=== PATIENT | female | born 1970 | race Caucasian/White ===

== ENCOUNTER 2016-08-01 21:15 | Inpatient (IN) | payer OTHER ==
[~2016-08-01] VITALS: Ht 165.1 cm; Wt 92.6 kg
--- NOTE | 2016-08-01 23:59 | DIAGNOSTIC IMAGING REPORT ---
PROCEDURE: XR CHEST 2 VIEW INDICATION: SHORTNESS OF BREATH TECHNIQUE: Two views. COMPARISON: None. FINDINGS: The cardiomediastinal contour and central vasculature are within normal limits. Mild peribronchial thickening bilaterally. Hazy opacity involving the lingula. Patchy perihilar alveolar opacities involving the upper lobes and right middle lobe. No significant pleural effusion or pneumothorax. Intact osseous structures. IMPRESSION: 1. Multifocal bilateral alveolar opacities, most extensive in the lingula as well as peribronchial thickening. The findings are likely infectious/ inflammatory.
--- NOTE | 2016-08-02 01:14 | ED NURSING NOTES ---
Clinical Report - Nurses [facility] [address] [place] [address] 08/01/2016 21:15 Patient: ALETHEA TREVIZO TRIAGE Triage time 21:22. Acuity: LEVEL 3. Chief Complaint: COUGH and FEVER. ( 89% on room air. Pt was placed on 2 liters nc.). --21:29 Luis Carlos Peñaloza R.N. 21:22 08/01/16. BP: 161/73. HR: 110. RR: 22. O2 saturation: 89%. Temp: 98.5 F. Pain level now 07/10. --21:29 Luis Carlos Peñaloza R.N. Weight: 87.5 kg stated. Height/Length: 65 inches Per Patient. BMI: 32.1. --21:27 Luis Carlos Peñaloza R.N. Allergies No Known Drug Allergy. --02:58 Paolo Bustillo R.N. Medication/allergy information source: the patient. --21:29 Luis Carlos Peñaloza R.N. History Arrived by private vehicle. Historian: patient. Unaccompanied. Onset. (4 days ago). ( Pt came in with a fever, cough, headache. Pt has rib pain due to the coughing. Pt has not been able to smoke, but has smoked 20 yrs.). She has had chest congestion and a headache. 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 PAST MEDICAL HX: Immunizations: up-to-date. SOCIAL HX: Current every day heavy tobacco smoker (cigarette)- less than 1 pack per day. No alcohol use or drug use. --21:29 Luis Carlos Peñaloza R.N. PROBLEMS: Back Pain. Chronic Back Pain. Abscess. Cellulitis. --21:26 Luis Carlos Peñaloza R.N. Interventions ID band on patient. To treatment room. --21:29 Luis Carlos Peñaloza R.N. PHYSICAL ASSESSMENT GENERAL / NEURO / PSYCH: Alert. Oriented X 4. Appears anxious. HEENT: Pupils equal, round and reactive to light. Ears within normal limits. Nares within normal limits. Mouth within normal limits upon inspection. Hoarse voice. Pharynx within normal limits. Mucous membranes are pink. RESPIRATORY: Mild respiratory distress. The patient can speak in full sentences. Mild intercostal accessory muscle use. Wheezes bilaterally; right lung; left lung. ( pt was placed on 2 liters nc and already feels better. Pt is able to breath better and feels less anxious.). CVS: Normal sinus rhythm noted. Capillary refill less than 2 seconds. SKIN: Skin is warm and dry. Normal skin turgor. --21:31 Luis Carlos Peñaloza R.N. Ambulatory to room. GENERAL / NEURO / PSYCH: Alert. Oriented X 4. Appears anxious and in distress. RESPIRATORY: Moderate respiratory distress. The patient can speak a few words at a time. Accessory muscle use. Cough. Expiratory bilateral wheezes diffusely. CVS: Capillary refill less than 2 seconds. SKIN: Skin is dry. --00:35 Paolo Bustillo R.N. 00:00 08/02/16. BP: 135/82. HR: 109 (regular and tachycardic). RR: 28 (regular and labored). O2 saturation: 83% on room air. Temp: 99.4 F (oral). Pain level now: 12/10. --00:36 Paolo Bustillo R.N. 00:05 08/02/16. O2 saturation: 93% on nasal cannula at 5 liters/minute. Additional comments: I verbally notified Dr. Madelin Guadalupe, of the patient's vital signs and current condition. --00:37 Paolo Bustillo R.N. 02:13 08/02/16. BP: 131/88. HR: 114. RR: 34. O2 saturation: 100% on face mask at 8 liters/minute. --02:13 Paolo Bustillo R.N. NURSING PROGRESS NOTES Patient gowned. Two patient identifiers checked. Call light placed in reach. Side rails up x 1. Bed placed in lowest position. Brakes of bed on. --21:29 Luis Carlos Peñaloza R.N. 21:29 08/01/16. O2 saturation: 95% on nasal cannula at 2 liters/minute. O2 started via nasal cannula. --21:29 Luis Carlos Peñaloza R.N. Pulse oximeter and NIBP monitor placed on patient. Patient gowned. Two patient identifiers checked. Call light placed in reach. Side rails up x 1. Bed placed in lowest position. Brakes of bed on. --21:31 Luis Carlos Peñaloza R.N. 22:33 08/01/16. BP: 128/60. HR: 102. RR: 17. O2 saturation: 92% at 2 liters/minute. O2 started via nasal cannula. Pain level now 0/10. --22:34 Luis Carlos Peñaloza R.N. Patient transported to radiology by stretcher with tech. (23:03). --23:03 Luis Carlos Peñaloza R.N. Patient returned from radiology by stretcher with tech. (23:04). --23:04 Luis Carlos Peñaloza R.N. ( patient returns from radiology. Report received from Luis Carlos Bone RN). --23:09 Paolo Bustillo R.N. 00:16 08/02/2016 Site #1 started via IV in the left antecubital space with an 20g angiocath, with aseptic technique and good blood return; one attempt. Blood drawn: rainbow set. Labeled in the presence of the patient and sent to the lab. Saline lock flushed with saline. --00:31 Paolo Bustillo R.N. 00:22 08/02/2016 Started bag #1 1000 mL IV Fluids IV NS (Saline); over 1 hour(s) via site #1 via IV pump. Allergies verified and confirmed 5 rights. IV patency established. IV site checked: no pain, redness, or swelling. IV flushed thoroughly pre- and post-medication administration. --00:32 Paolo Bustillo R.N. 00:26 08/02/2016 Started 2 gm of Rocephin (CefTRIAXone Sodium) IVPB in bag #1 50 mL; at 120 mL/hr over 20 minute(s) via site #1 via IV pump. Allergies verified and confirmed 5 rights. IV patency established. IV site checked: no pain, redness, or swelling. IV flushed thoroughly pre- and post-medication administration. --00:31 Paolo Bustillo R.N. 00:52 08/02/2016 Started 500 mg of Zithromax (Azithromycin) IVPB in bag #1 250 mL; at 250 mL/hr over 1 hour(s) via site #1 via IV pump. Allergies verified and confirmed 5 rights. IV patency established. --00:53 Paolo Bustillo R.N. ( called RT for ABG). --01:16 Paolo Bustillo R.N. ( patient insists on being disconnected so that she can walk to the bathroom). --01:26 Paolo Bustillo R.N. 02:21 08/02/2016 Toradol IVP 15 mg given over 1 minute(s) via site #1. Allergies verified and confirmed 5 rights. IV patency established. IV site checked: no pain, redness, or swelling. IV flushed thoroughly pre- and post-medication administration. IVP given by RN. --02:26 Paolo Bustillo R.N. 02:23 08/02/2016 Dilaudid (HYDROmorphone HCl PF) IVP 1 mg given over 2 minute(s) via site #1. Allergies verified, confirmed 5 rights and sedative warning given to the patient. IV patency established. IV site checked: no pain, redness, or swelling. IV flushed thoroughly pre- and post-medication administration. IVP given by RN. --02:27 Paolo Bustillo R.N. Care transferred and report given (ARLETH Hood (FLoor nurse for room 204)). --02:34 Paolo Bustillo R.N. 00:50 08/02/2016 Rocephin IVPB Discontinued: completed. Total amount infused: 50 mL. IV patency established. IV site checked: no pain, redness, or swelling. IV flushed thoroughly. --02:57 Paolo Bustillo R.N. 01:22 08/02/2016 IV Fluids IV NS Discontinued: completed. Total amount infused: 1000 mL. IV patency established. IV site checked: no pain, redness, or swelling. IV flushed thoroughly. --02:56 Paolo Bustillo R.N. 01:55 08/02/2016 Zithromax IVPB Discontinued: completed. Total amount infused: 250 mL. IV patency established. IV site checked: no pain, redness, or swelling. IV flushed thoroughly. --02:57 Paolo Bustillo R.N. DISPOSITION / DISCHARGE Departure time: 0245. Condition at departure: stable. No learning barriers present. Reviewed warnings. Treatments reviewed. Patient verbalized understanding. Admitted to Acute Care (room 209). Transferred (0245). Transported via stretcher by transport team with O2. Report was given to a nurse via a phone call. Report included patient's care, treatment, medications, reviewed medication reconcilliation, and condition (including any recent changes or anticipated changes). All questions were answered. Patient's personal items include: shirt, pants, coat, purse and cell phone; items were placed in belongings bag. --02:55 Paolo Bustillo R.N. Locked/Released at 08/02/2016 2:59 by Paolo Bustillo R.N.
--- NOTE | 2016-08-02 01:14 | ED CLINICAL REPORT ---
Clinical Report - Physicians/Mid Levels [facility] [address] [place] [address] 08/01/2016 21:15 Patient: ALETHEA TREVIZO Time Seen: 21:21. Arrived- By private vehicle. Historian- patient. HISTORY OF PRESENT ILLNESS Chief Complaint: DYSPNEA and HISTORY OF CHRONIC OBSTRUCTIVE PULMONARY DISEASE. This started several days ago and is still present. The dyspnea is described as moderate and is worsened by exertion and is improved by rest. The patient has had sputum production, a cough, chest discomfort, fever and wheezing. She has had chills and dyspnea on exertion. No sweating episodes, chest pain, calf pain, foot swelling or orthopnea. No anxiety, dizziness, tingling, numbness or palpitations. Similar symptoms previously: Once. Recent medical care: Not recently seen/assessed. REVIEW OF SYSTEMS The patient has had a headache but not had weight loss. No muscle aches, eye irritation, sore throat, nasal discharge or sinus drainage. No nausea, vomiting, abdominal pain, diarrhea or black stools. No bloody stools, fainting episodes, blurred vision, difficulty with urination or skin rash. No enlarged lymph nodes or joint pain. Denies current . All systems otherwise negative, except as recorded above. PAST HISTORY Problems: Chronic Back Pain. Additional Surgeries: Cholecystectomy. Oophorectomy. Allergies: No Known Drug Allergy. SOCIAL HISTORY Smoker- current status unknown. No alcohol use or drug use. ADDITIONAL NOTES The nursing notes have been reviewed. PHYSICAL EXAM Vital Signs: 08/01/2016 21:22 BP: 161/73. HR: 110. RR: 22. O2 saturation: 89%. Temp: 98.5 F. Have been reviewed. Appearance: Alert. No acute distress. (Pt appears moderately uncomfortable.). Eyes: Pupils equal, round and reactive to light. Eyes normal inspection. ENT: Nose normal. Neck: Normal inspection. No jugular venous distention. Neck supple. CVS: Normal heart rate and rhythm. Heart sounds normal. Pulses normal. Respiratory: No respiratory distress. Breath sounds normal. (PT has a persistent, congested-sounding cough.). Abdomen: Soft and nontender. Back: Normal inspection. No CVA tenderness. Skin: Skin warm and dry. Normal skin color. No rash. Normal skin turgor. Extremities: Extremities exhibit normal ROM. No lower extremity edema. Neuro: Oriented X 3. No motor deficit. No sensory deficit. LABS, X-RAYS, AND EKG Chest X-ray: Infiltrate present. Normal heart size. Mediastinum normal. Great vessels normal. Soft tissues normal. No fracture. No bony lesion present. Views: PA and lateral. Technique: good. The X-rays were independently viewed by me and interpreted contemporaneously by me. Prior films were not available for comparison. Laboratory Tests: CBC w Diff: (MOUNA: 08/02/2016 00:20) ( MsgRcvd 08/02/2016 00:33) Final results Test Result Flag Units (Reference) WHITE BLOOD COUNT 10.4 K/uL (4.5-11.5) RED BLOOD COUNT 3.90 L M/uL (4.00-5.20) HEMOGLOBIN 10.8 L gm/dL (12.0-16.0) HEMATOCRIT 32.7 L % (36.0-46.0) MEAN CELL VOLUME 84 fL (80-100) MEAN CORPUSCULAR HGB 28 pg (26-34) MEAN CORPUSCULAR HGB CONC 33 g/dL (31-37) RED CELL DISTRIBUTION WIDTH 16.3 H % (11.6-14.8) PLATELET COUNT 182 K/uL (150-400) NEUTROPHIL % 82.4 H % (50-75) LYMPH % 12.4 L % (25-40) MONO % 5.0 % (3-14) EOSINOPHIL % 0.2 % (0-4) BASOPHIL % 0 % (0-2) CMP: (MOUNA: 08/02/2016 00:20) ( MsgRcvd 08/02/2016 00:57) Final results Test Result Flag Units (Reference) GLUCOSE 171 H mg/dL (70-110) BUN 9 mg/dL (7-18) CREATININE 1.0 mg/dL (0.6-1.3) Estimated GFR >60 mL/min Estimated GFR- >60 mL/min Note: Persistent reduction over 3 months in eGFR<60 mL/min/1.73 m2 defines CKD. Patients with eGFR values>=60 mL/min/1.73 m2 may also have CKD if evidence ofpersistent proteinuria. Additional information may be foundat www.kidney.org. SODIUM 137 mmol/L (136-145) POTASSIUM 4.0 mmol/L (3.5-5.1) CHLORIDE 99 mmol/L (98-107) CARBON DIOXIDE 27 mmol/L (21-32) CALCIUM 8.3 L mg/dL (8.5-10.1) TOTAL PROTEIN 7.5 g/dL (6.4-8.2) ALBUMIN 3.1 L g/dL (3.3-5.0) BILIRUBIN, TOTAL 0.3 mg/dL (0.0-1.0) ALKALINE PHOSPHATASE 121 H U/L (46-116) AST (SGOT) 39 H U/L (15-37) ALT (SGPT) 55 U/L (12-78) Rapid Influenza Screen: (MOUNA: 08/01/2016 00:00) ( MsgRcvd 08/01/2016 23:15) Final results SPECIMEN DESCRIPTION: SWAB Test Result Flag Units (Reference) RAPID INFLUENZA SCREEN CALLED TO: N/A -- DATE: 08/01/16 INFLUENZA A: NEGATIVE SCREEN FOR INFLUENZA A INFLUENZA B: NEGATIVE SCREEN FOR INFLUENZA B . Pulse Oximetry: 08/01/2016 21:22 O2 saturation: 89%. (FIO2 - room air). Interpretation: normal. PROGRESS AND PROCEDURES Course of Care: PT was given IM Rocephin and PO Zithromax for pneumonia on x-ray. Influenza test was negative. PT's O2 sats were in the 80's on RA, and her respirations had become slightly more labored in the ED. She was more tachypneic (though she did insist on ambulating to the bathroom on her own, and did okay with this), and I felt she should be admitted to the hospital for her pneumonia and hypoxia. Pt was agreeable to this plan. No evidence of sepsis at this time. Discussed case with hospitalist. Reviewed test results and need for additional work-up. Agreed upon treatment plan and decision to admit. Health care provider will see patient in ED. Patient counseled in person regarding the patient's serious condition, test results, diagnosis and need for admission. Concerns were addressed. Old medical records reviewed. Disposition: Admitted to Acute Care. Condition: stable and serious. CLINICAL IMPRESSION Bacterial pneumonia with hypoxemia. Vital signs recorded and reviewed; empiric antibiotics given in the ED. (Electronically signed by Madelin Greene MD 08/10/2016 12:44)
--- NOTE | 2016-08-02 01:14 | ED ORDER SUMMARY ---
..... Patient: ALETHEA TREVIZO OrderSheet [facility] VisitID: [id number] [address] [place] [address] 46y, F Registration Date/Time: 08/01/2016 ORDER SHEET Weight: 87.5 kg (stated) Allergies: No Known Drug Allergy GENERAL ORDERS: Chest 2V Urgent (22:08/01/2016 Mariella COSME) (22:46 TLewis R.N.) Rapid Influenza Screen (Nasal Pharyngeal) (swab) Urgent (:08/01/2016 Mariella COSME) (22:35 TLewis R.N.) Blood Culture (No) (N/A) Urgent (:08/01/2016 Mariella COSME) (Ack 0:26 CHategekimana) (0:33 DDavis R.N.) CBC w Diff Urgent (:08/01/2016 Mariella COSME) (Ack 0:26 CHategekimana) (0:33 DDavis R.N.) CMP Urgent (:08/01/2016 Mariella COSME) (Ack 0:26 CHategekimana) (0:33 DDavis R.N.) Lactate, Serum Urgent (:08/02/2016 Mariella COSME) (1:15 DDavis R.N.) ABG (G) Urgent (:08/02/2016 Mariella COSME) (Ack 1:16 DDavis R.N.) (2:11 DDavis R.N.) MEDICATION ORDERS: Rocephin IM 2 gm (NOW) (23:43 08/01/2016 Mariella COSME) (Cancelled: Other23:49 Mariella COSME) Zithromax PO 500 mg (NOW) (23:43 08/01/2016 Mariella COSME) (Cancelled: Other23:49 Marielal COSME) IV FLUIDS: Rocephin IV 2 gm/50mL (NOW) (23:49 08/01/2016 Mariella COSME) (0:31 DDavis R.N.) Zithromax IV 500 mg/250 mL (NOW) (23:50 08/01/2016 Mariella COSME) (Ack 0:33 DDavis R.N.) (0:53 DDavis R.N.) IV NS : initial bolus 1000 mL (1000 mL/hr), then none - (NOW) (23:50 08/01/2016 Mariella COSME) (0:32 DDavis R.N.) Toradol IV 15 mg (NOW) (02:12 08/02/2016 Mariella COSME) (2:26 DDavis R.N.) Dilaudid IV 1 mg (HIGH ALERT MEDICATION, NOW) (02:12 08/02/2016 Mariella COSME) (2:27 DDavis R.N.) ORDER SHEET NOTES: [Electronically signed by Paolo Bustillo R.N. (02:59 08/02/2016)] [Electronically signed by Madelin Greene MD (12:44 08/10/2016)] [Electronically locked/signed by Paolo Bustillo R.N. (02:59 08/02/2016)]
--- NOTE | 2016-08-02 01:14 | ED ORDER SUMMARY ---
..... Patient: ALETHEA TREVIZO OrderSheet [facility] VisitID: [id number] [address] [place] [address] 46y, F Registration Date/Time: 08/01/2016 ORDER SHEET Weight: 87.5 kg (stated) Allergies: No Known Drug Allergy GENERAL ORDERS: Chest 2V Urgent (22:08/01/2016 Mariella COSME) (22:46 TLewis R.N.) Rapid Influenza Screen (Nasal Pharyngeal) (swab) Urgent (:08/01/2016 Mariella COSME) (22:35 TLewis R.N.) Blood Culture (No) (N/A) Urgent (:08/01/2016 Mariella COSME) (Ack 0:26 CHategekimana) (0:33 DDavis R.N.) CBC w Diff Urgent (:08/01/2016 Mariella COSME) (Ack 0:26 CHategekimana) (0:33 DDavis R.N.) CMP Urgent (:08/01/2016 Mariella COSME) (Ack 0:26 CHategekimana) (0:33 DDavis R.N.) Lactate, Serum Urgent (:08/02/2016 Mariella COSME) (1:15 DDavis R.N.) ABG (G) Urgent (:08/02/2016 Mariella COSME) (Ack 1:16 DDavis R.N.) (2:11 DDavis R.N.) MEDICATION ORDERS: Rocephin IM 2 gm (NOW) (23:43 08/01/2016 Mariella COSME) (Cancelled: Other23:49 Mariella COSME) Zithromax PO 500 mg (NOW) (23:43 08/01/2016 Mariella COSME) (Cancelled: Other23:49 Mariella COSME) IV FLUIDS: Rocephin IV 2 gm/50mL (NOW) (23:49 08/01/2016 Mariella COSME) (0:31 DDavis R.N.) Zithromax IV 500 mg/250 mL (NOW) (23:50 08/01/2016 Mariella COSME) (Ack 0:33 DDavis R.N.) (0:53 DDavis R.N.) IV NS : initial bolus 1000 mL (1000 mL/hr), then none - (NOW) (23:50 08/01/2016 aMriella COSME) (0:32 DDavis R.N.) Toradol IV 15 mg (NOW) (02:12 08/02/2016 Mariella COSME) (2:26 DDavis R.N.) Dilaudid IV 1 mg (HIGH ALERT MEDICATION, NOW) (02:12 08/02/2016 Mariella COSME) (2:27 DDavis R.N.) ORDER SHEET NOTES: [Electronically signed by Paolo Bustillo R.N. (02:59 08/02/2016)] [Electronically signed by Madelin Greene MD (12:44 08/10/2016)] [Electronically locked/signed by Paolo Bustillo R.N. (02:59 08/02/2016)]
[2016-08-02 03:23] VITALS: BP 125/71
[2016-08-02 06:44] VITALS: BP 117/81
--- NOTE | 2016-08-02 08:05 | HISTORY AND PHYSICAL ---
ADMITTED: 08/02/2016 DATE OF ADMISSION: 08/02/2016 HISTORY OF PRESENT ILLNESS: The patient is a 46-year-old woman who developed chest congestion and cough and general malaise starting 4 days prior to her admission. She has gradually worsened. She reached the point where she was having quite severe left -sided chest pain and shortness of breath and difficulty getting around due to the shortness of breath. She had no hemoptysis. She did have fevers. She did not measure them, but felt quite weak with these. She presented to the emergency department and was found to have bilateral pneumonia, worse on the left than the right. Her oxygen saturations were in the low 80s and she has subsequently been admitted. MEDICAL/SURGICAL HISTORY: Past medical history is unremarkable for major medical problems. She has been a long-time smoker, but has not had major respiratory difficulties and has not been admitted for respiratory problems in the last several years. She does have a recent history of having had a problem with her left foot, which was treated with corticosteroids due to swelling and pain. Past surgical history is remarkable for childbirth x2 and cholecystectomy. MEDICATIONS: 1. None on a regular basis. ALLERGIES: 1. None, though she does have some difficulties with corticosteroids. SOCIAL HISTORY: The patient is . 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 She has been a smoker of one-half pack per day for many years. She has not been able to smoke for the last several days and has decided that she should simply quit. She does not drink alcohol, nor does she use other drugs. FAMILY HISTORY: Remarkable for father who around age 56 of complications of diabetes. The patient's mother is 66 and in fairly decent health. REVIEW OF SYSTEMS: HEENT is okay. The patient does have dentures. Respiratory: As noted above. Cardiovascular is okay except for somewhat rapid heart rate with her illness. Gastrointestinal: Okay with no nausea, vomiting, or diarrhea. Genitourinary is okay. She is having no problems passing urine. She is no longer having menstrual periods. Musculoskeletal: Remarkable for some chronic lower back pain. Neurologic is okay with no focal numbness or weakness. Skin has been okay. Psychiatric is okay with no major depression issues. PHYSICAL EXAMINATION: VITAL SIGNS: Temperature to be 98. Pulse is in the 70-90 range. Respiratory rate is in the 17-30 range. Blood pressure is 125/71. Oxygen saturation has been in the low 90s to upper 90s on 6-8 liters per minute of oxygen by Ventimask. HEENT: Head is normal. Ear canals and tympanic membranes are normal. Eyes show pupils equal, round, and reactive to light. Nose and throat are clear. Dentures are noted. NECK: Supple without significant adenopathy. CHEST: Reveals bilateral coarse rales and rhonchi and some scattered expiratory wheezes. Air movement on the left is significantly less than the right. BREASTS: Show no masses. There is no axillary adenopathy. HEART: Reveals normal S1 and S2 with no distinct murmur. ABDOMEN: Nontender with no organomegaly or mass. PELVIC: Not done. RECTAL: Not done. EXTREMITIES: Show no edema. Peripheral pulses are normal. NEUROLOGIC: The patient be alert and oriented x3. Cranial nerves are normal. Motor and sensory exams are normal. SKIN: Normal with no significant abnormalities. LAB/IMAGING: Studies show white blood cell count to be 10,400. Hemoglobin is 8.1 and hematocrit is 32.7. Sodium is 137, potassium 4.0, chloride 99, CO2 27, glucose 171, creatinine is 1.0, BUN is 9. Lactic acid is 0.8. Total bilirubin is 1.3. SGOT is 39, SGPT is 58. Blood gas shows pH of 7.38, pO2 of 46 and pCO2 44. This was done on room air. Chest x-ray shows predominantly lingular infiltrate with some scattered primarily alveolar opacities on the right as well. IMPRESSION: 1. The patient is presenting with left lingular pneumonia, primarily and some on the right. She is quite significantly short of breath with significantly decreased oxygen saturations with this. She does seem to have an element of bronchospasm. She is a long-time smoker, is needing to quit. PLAN: The patient is admitted to the inpatient service. She will be here more than 2 midnights, most likely. She will be continued on azithromycin and ceftriaxone, which have been started in the emergency department. She will begin incentive spirometry. She will also start on nebulizer treatments with DuoNeb. Laboratory studies will be followed. She will continue with supplemental oxygen as needed. Additionally, she will be given a prescription for lorazepam to have available if she develops nervousness and tremulousness with the respiratory treatments.
--- NOTE | 2016-08-02 08:10 | Progress Note ---
Subjective General Note Date: August 02, 2016 Admission Date: August 02, 2016 Hospital Day: 1 PCP: [PCP] Status: Inpatient Advanced Directive: Full Code Room: 207 Brief History: The patient is a 46-year-old white female with a significant past history of nicotine dependence-smoking who presented to [facility] emergency department on the day of admission secondary to complaints of cough, generalized malaise, and chest congestion. [facility] ER evaluation was consistent with bilateral pneumonia. Secondary to the above, the patient was admitted by Dr. Brandon Maldonado for further evaluation and treatment For other history present illness, past medical history, family history, social history, review of systems, and admission physical examination please see the patient's history and physical examination and ER visit note in the patient's medical record. Subjective: The patient states she is doing significantly better than admission. Overall status approximately 40% improved. Shortness of breath improved. Patient requests: None Medications and Allergies Medications Current Medications Sig/Altaf Start time Last Medication Dose Route Stop Time Status Admin Azithromycin 500 MG Q24HR@2200 08/02 2200 AC Sodium Chloride 250 ML IV Ceftriaxone Sodium/ 50 ML Q24HR@2100 08/02 2100 AC Dextrose IV Ketorolac 15 MG Q6HR 08/02 0700 AC 08/02 Tromethamine IV 08/04 0001 0648 Albuterol/Ipratropium 3 ML RTQ6H 08/02 0645 AC 08/02 IN 0754 Hydromorphone HCl 0.5 MG Q3H PRN 08/02 0630 AC IV Lorazepam 0.25 MG Q6H PRN 08/02 0630 AC 08/02 PO 0655 Albuterol Sulfate 2.5 MG Q6H PRN 08/02 0615 AC IN Azithromycin 500 MG .[2200 DAILY] 08/02 0615 CAN IV Ceftriaxone Sodium/ 2 GM .[2100 DAILY] 08/02 0615 CAN Dextrose IV Sodium Chloride 1,000 ML ASDIRECTED 08/02 0215 AC 08/02 IV 0335 Allergies Coded Allergies: NKA (08/02/16) Allergies No Known Drug Allergy. --16:21 Mac Nascimento R.N. Physical Exam Vital Signs / I&Os Vital Signs Date Time Temp Pulse Resp B/P Pulse O2 O2 Flow FiO2 Ox Delivery Rate 08/02 0805 95 Nasal 5.0 Cannula 08/02 0757 5.0 08/02 0644 98.8 94 22 117/81 96 Mask 8.0 04/ 0613 8.0 04/ 0345 8.0 04/ 0323 99.3 73 17 125/71 98 Mask 8.0 / 0154 5.0 General Appearance Alert, Oriented X3, Cooperative, No acute distress Lungs Normal air movement, scattered rhonchi Cardiovascular Regular rate and rhythm, Normal S1 and S2 Abdomen Normal bowel sounds, Soft, No tenderness Extremities No cyanosis, No clubbing, No edema Neurological Cranial nerves intact, No lateralizing signs Psych/Mental Status Mental status normal, anxious LAB Results Laboratory Tests 08/02 08/02 08/02 0113 0020 0020 Blood Gas Sample Site LR Total CO2 (24.0 - 30.0 mmol/L) 26.8 ABG pH (7.35 - 7.45) 7.36 ABG pCO2 at Pt Temp (35 - 45 mmHg) 44.8 ABG pO2 at Pt Temp (80.0 - 100.0 mmHg) 46.1 ABG HCO3 (20.0 - 26.0 mmol/L) 25.4 ABG O2 Sat Calc/Zaid (95.1 - 100.0 %) 83.2 ABG Base Excess (-6.0 - -6.0 mmol/L) 0.0 ABG Reduced Hgb (%) 16.5 ABG Carboxyhemoglobin (0.5 - 1.5 %) 1.7 ABG Methemoglobin (0.4 - 1.5 %) 0.1 Joey Test YES Other Total Hgb (12.0 - 16.0 g/dL) 10.2 A-a O2 Gradient (7.0 - 14.0 mmHg) 191.0 Hgb O2 Saturation (95.0 - 100.0 %) 81.7 Respiration Rate (/MIN) 26 O2 Liters/Min (0 - 20 L/MIN) 5 Vent Mode NC FiO2 (20 - 101 %) 40 Chemistry Plasma Sodium (136 - 145 mmol/L) 137 Plasma Potassium (3.5 - 5.1 mmol/L) 4.0 Plasma Chloride (98 - 107 mmol/L) 99 CO2 (Enzymatic) (21 - 32 mmol/L) 27 BUN (7 - 18 mg/dL) 9 Creatinine (0.6 - 1.3 mg/dL) 1.0 Est GFR ( Amer) (mL/min) >60 Est GFR (Non-Af Amer) (mL/min) >60 Glucose (70 - 110 mg/dL) 171 Lactic Acid (0.4 - 2.0 mmol/L) 0.8 Plasma Calcium (8.5 - 10.1 mg/dL) 8.3 Total Bilirubin (0.0 - 1.0 mg/dL) 0.3 AST (15 - 37 U/L) 39 ALT (12 - 78 U/L) 55 Alkaline Phosphatase (46 - 116 U/L) 121 Total Protein (6.4 - 8.2 g/dL) 7.5 Albumin (3.3 - 5.0 g/dL) 3.1 Hematology WBC (4.5 - 11.5 K/uL) 10.4 RBC (4.00 - 5.20 M/uL) 3.90 Hgb (12.0 - 16.0 gm/dL) 10.8 Hct (36.0 - 46.0 %) 32.7 MCV (80 - 100 fL) 84 MCH (26 - 34 pg) 28 RDW (11.6 - 14.8 %) 16.3 Neut % (Auto) (50 - 75 %) 82.4 Lymph % (Auto) (25 - 40 %) 12.4 Darke % (Auto) (3 - 14 %) 5.0 Eos % (Auto) (0 - 4 %) 0.2 Baso % (Auto) (0 - 2 %) 0 Plt Count, EDTA (150 - 400 K/uL) 182 PUBS MCHC (31 - 37 g/dL) 33 Microbiology Date/Time Procedure - Status Source Growth 08/03 39 Blood Culture - RECD BLOOD 08/03 19 Blood Culture - RECD BLOOD Assessment and Plan Problem List 1. Pneumonia Status Acute Onset Date Unknown Plan -Patient's status stable -Afebrile -O2 sats improved -Continue antimicrobials Rocephin/Zithromax -Monitor 2. Hyperglycemia Status Acute Onset Date Unknown Plan -Patient with mild hyperglycemia -Fasting blood glucose 171 mg/deciliter -Check before meals and at bedtime blood sugars -Check hemoglobin A1c 3. Hypoxia Plan -Status improved -Continue supplemental oxygen -DuoNeb one via nebulizer every 6 hours Current status: Fair, unstable Anticipated discharge date: Anticipated discharge in 2-3 days Anticipated discharge placement: Home Patient care time: Time spent in chart review, patient interview, physical exam, CPOE, and care documentation: 25 minutes Visit to patient today: 2 Complexity of care: Moderate E&M Codes Rounding: Inpt-Moderate/[id number]
[2016-08-02 10:09] VITALS: BP 109/73
[2016-08-02 14:14] VITALS: BP 116/66
[2016-08-02 17:55] VITALS: BP 127/65
[2016-08-03] VITALS (7 sets, daily range): BP systolic 110–148; BP diastolic 68–83
--- NOTE | 2016-08-03 07:46 | Progress Note ---
Subjective General Note Date: August 03, 2016 Admission Date: August 02, 2016 Hospital Day: 2 PCP: Unknown Status: Inpatient Advanced Directive: Full Code Room: 207 Brief History: The patient is a 46-year-old white female with a significant past history of nicotine dependence-smoking who presented to [facility] emergency department on the day of admission secondary to complaints of cough, generalized malaise, and chest congestion. [facility] ER evaluation was consistent with bilateral pneumonia. Secondary to the above, the patient was admitted by Dr. Brandon Maldonado for further evaluation and treatment For other history present illness, past medical history, family history, social history, review of systems, and admission physical examination please see the patient's history and physical examination and ER visit note in the patient's medical record. Subjective: The patient has persistent left-sided pleuritic chest pain. Breathing improved. Afebrile Patient requests: None other than improved pain control with pleuritic chest pain Medications and Allergies Medications Current Medications Sig/Altaf Start time Last Medication Dose Route Stop Time Status Admin Azithromycin 500 MG Q24HR@2200 08/02 2200 AC 08/02 Sodium Chloride 250 ML IV 2225 Ceftriaxone Sodium/ 50 ML Q24HR@2100 / 2100 AC 08/02 Dextrose IV 2105 Acetaminophen 650 MG Q4H PRN 08/02 1645 AC 08/03 PO 0628 Ketorolac 15 MG Q6HR 08/02 0700 AC 08/03 Tromethamine IV 08/04 0001 0624 Albuterol/Ipratropium 3 ML RTQ6H 08/02 0645 AC 08/03 IN 0209 Hydromorphone HCl 0.5 MG Q3H PRN 08/02 0630 AC 08/03 IV 0413 Lorazepam 0.25 MG Q6H PRN 08/02 0630 AC 08/03 PO 0459 Albuterol Sulfate 2.5 MG Q6H PRN 08/02 0615 AC IN Sodium Chloride 1,000 ML ASDIRECTED 08/02 0215 AC 08/03 IV 0406 Allergies Coded Allergies: NKA (08/02/16) Allergies No Known Drug Allergy. --16:21 Mac Nascimento R.N. Physical Exam Vital Signs / I&Os Vital Signs Date Time Temp Pulse Resp B/P Pulse O2 O2 Flow FiO2 Ox Delivery Rate 08/03 0648 94 Nasal 2.0 Cannula 04/03 0639 98.6 90 22 124/80 87 Room Air 04 0235 98.4 79 18 110/68 96 Nasal 1.0 Cannula 08/03 0210 1.0 08/03 0116 98.4 88 20 134/76 94 Nasal 1.0 Cannula 08/02 1947 Room Air 08/02 1755 98.4 96 20 127/65 94 04 1700 94 Room Air 08/02 1456 1.0 08/02 1414 98.4 95 20 116/66 97 Nasal 3.0 Cannula 08/02 1333 11 Nasal 3.0 Cannula 08/02 1326 88 Room Air 0.0 08/02 1308 11 89 Room Air 0.0 08/02 1009 98.6 95 22 109/73 94 Nasal 5.0 Cannula 08/02 0816 Nasal 5.0 Cannula 08/02 0805 95 Nasal 5.0 Cannula 08/02 0757 5.0 I&O 08/03 0000 02 1600 08/02 0800 Intake Total 740 853 240 Output Total 525 700 870 Balance 215 153 -630 General Appearance Alert, Oriented X3, Cooperative, No acute distress Lungs diffuse scattered rhonchi, minimal expiratory wheezes Cardiovascular Regular rate and rhythm, Normal S1 and S2 Abdomen Normal bowel sounds, Soft, No tenderness Extremities No cyanosis, No clubbing Neurological Grossly normal Psych/Mental Status Mental status normal, Mood normal LAB Results Laboratory Tests 08/03 08/02 0510 1020 Chemistry Plasma Sodium (136 - 145 mmol/L) 144 Plasma Potassium (3.5 - 5.1 mmol/L) 3.6 Plasma Chloride (98 - 107 mmol/L) 108 CO2 (Enzymatic) (21 - 32 mmol/L) 26 BUN (7 - 18 mg/dL) 9 Creatinine (0.6 - 1.3 mg/dL) 0.8 Est GFR ( Amer) (mL/min) >60 Est GFR (Non-Af Amer) (mL/min) >60 Glucose (70 - 110 mg/dL) 117 Hemoglobin A1c % (4.5 - 6.2 %) 6.5 Plasma Calcium (8.5 - 10.1 mg/dL) 8.4 Plasma Magnesium (1.8 - 2.4 mg/dL) 2.1 Hematology WBC (4.5 - 11.5 K/uL) 9.1 RBC (4.00 - 5.20 M/uL) 3.18 Hgb (12.0 - 16.0 gm/dL) 8.7 Hct (36.0 - 46.0 %) 26.7 MCV (80 - 100 fL) 84 MCH (26 - 34 pg) 27 RDW (11.6 - 14.8 %) 16.7 Neut % (Auto) (50 - 75 %) 76.7 Lymph % (Auto) (25 - 40 %) 16.7 Alexander % (Auto) (3 - 14 %) 6.0 Eos % (Auto) (0 - 4 %) 0.4 Baso % (Auto) (0 - 2 %) 0.2 Plt Count, EDTA (150 - 400 K/uL) 185 PUBS MCHC (31 - 37 g/dL) 33 Assessment and Plan Problem List 1. Pneumonia Status Acute Onset Date Unknown Plan -Patient afebrile, WBC within normal limits -Elevated Procalcitonin on admission -Continue with Rocephin/Zithromax -Repeat chest x-ray in a.m. -Monitor 2. Hypoxia Status Acute Onset Date Unknown Plan -Improved -Persistent mild hypoxemia with room air -Supplemental oxygen as necessary -Patient with mild bronchospasm, will add Solu-Medrol 40 mg IV 3 times a day -Monitor 3. Hyperglycemia Status Acute Onset Date Unknown Plan -Mild -Mild elevation of hemoglobin A1c -Monitor -Insulin sliding scale as necessary Current status: Fair, improved Anticipated discharge date: Anticipated discharge in 1-2 days Anticipated discharge placement: Home Patient care time: Time spent in chart review, patient interview, physical exam, CPOE, and care documentation: 25 minutes Visit to patient today: 1 Complexity of care: Moderate E&M Codes Rounding: Inpt-Moderate/74212
[2016-08-04 02:46] VITALS: BP 142/76
[2016-08-04 06:48] VITALS: BP 146/83
[2016-08-04 10:30] VITALS: BP 136/78
[2016-08-04 14:24] VITALS: BP 149/64
--- NOTE | 2016-08-04 16:58 | Progress Note ---
Subjective General Pt seen and exained. Patient is stilll having some degree of pleurtitic pain however her respiratory exam is much more improved. Patient is otherwise stable. Constitutional Denies: Fever, Chills, Sweats, Weakness, Malaise, Other. Eyes Denies: Pain, Vision Change, Conjunctival Inflammation, Eyelid Inflammation, Redness, Other. Respiratory Cough, SOB w/exertion, Wheezing. Denies: Dry, Hemoptysis, Pleuritic Pain, Sputum, Other. Cardiovascular Denies: Chest Pain, Palpitations, Orthopnea, PND, Edema, Light-headedness, Other. Gastrointestinal Denies: Nausea, Vomiting, Abdominal Pain, Diarrhea, Constipation, Melena, Hematochezia, Other. Genitourinary Denies: Dysuria, Frequency, Incontinence, Hematuria, Retention, Other. Musculoskeletal Denies: Neck Pain, Shoulder Pain, Arm Pain, Back Pain, Hand Pain, Leg Pain, Foot Pain, Other. Skin Denies: Rash, Lesions, Jaundice, Bruising, Other. Neurological Denies: Weakness, Numbness, Incoordination, Change in speech, Confusion, Seizures, Other. Physical Exam Vital Signs / I&Os Vital Signs Date Time Temp Pulse Resp B/P Pulse O2 O2 Flow FiO2 Ox Delivery Rate 08/04 1438 2.0 08/04 1424 63 20 149/64 93 Nasal 2.0 Cannula 08/04 1030 98.2 62 22 136/78 92 Nasal 2.0 Cannula 08/04 0919 2.0 08/04 0821 Nasal 1.0 Cannula 08/04 0648 98.1 75 22 146/83 92 Nasal 2.0 Cannula 08/04 0246 97.7 72 20 142/76 94 Nasal 1.0 Cannula 08/04 0230 1.0 08/03 2246 98.2 85 20 148/83 91 Nasal 1.0 Cannula 08/03 2100 2.0 08/03 1927 1.0 08/03 1803 98.1 84 20 139/76 91 Nasal 1.0 Cannula 08/03 1740 Nasal 1.0 Cannula I&O 08/03 0800 04/03 1600 04 0000 Intake Total 1797 580 970 Output Total 400 375 200 Balance 1397 205 770 General Appearance Alert, Oriented X3, No acute distress HEENT Atraumatic, PERRLA, Moist mucous membranes Lungs Clear to auscultation, Normal air movement Cardiovascular Regular rate and rhythm, No murmurs, gallops, rubs Abdomen Soft, No tenderness, No guarding Extremities No cyanosis, No clubbing, No edema, Normal pulses, No tenderness Skin No Breakdown, No Significant Lesions Neurological Normal speech, Normal tone, Sensation intact, Cranial nerves intact , No lateralizing signs Psych/Mental Status Mood normal LAB Results Laboratory Tests 08/04 08/04 0535 0568 Chemistry Plasma Sodium (136 - 145 mmol/L) 139 Plasma Potassium (3.5 - 5.1 mmol/L) 3.6 Plasma Chloride (98 - 107 mmol/L) 103 CO2 (Enzymatic) (21 - 32 mmol/L) 24 BUN (7 - 18 mg/dL) 9 Creatinine (0.6 - 1.3 mg/dL) 0.8 Est GFR ( Amer) (mL/min) >60 Est GFR (Non-Af Amer) (mL/min) >60 Glucose (70 - 110 mg/dL) 105 Plasma Calcium (8.5 - 10.1 mg/dL) 8.4 Iron (35 - 150 ug/dL) 23 TIBC (260 - 445 ug/dL) 229 Iron Saturation (15 - 50 %) 10 Total Bilirubin (0.0 - 1.0 mg/dL) 0.3 AST (15 - 37 U/L) 27 ALT (12 - 78 U/L) 38 Alkaline Phosphatase (46 - 116 U/L) 108 Total Protein (6.4 - 8.2 g/dL) 6.6 Albumin (3.3 - 5.0 g/dL) 2.3 Vitamin B12 (211 - 946 pg/mL) 1169 Folate (>3.0 ng/mL) 10.2 Hematology WBC (4.5 - 11.5 K/uL) 6.7 RBC (4.00 - 5.20 M/uL) 3.10 Hgb (12.0 - 16.0 gm/dL) 8.4 Hct (36.0 - 46.0 %) 25.9 MCV (80 - 100 fL) 84 MCH (26 - 34 pg) 27 RDW (11.6 - 14.8 %) 16.2 Neut % (Auto) (50 - 75 %) 65 Lymph % (Auto) (25 - 40 %) 24 Tripp % (Auto) (3 - 14 %) 9 Eos % (Auto) (0 - 4 %) 0 Baso % (Auto) (0 - 2 %) 2 Band Neutrophils % (0 - 8 %) 0 Metamyelocytes % (0 - 1 %) 0 Myelocytes (0 - 1 %) 0 Other Cell Type 0 Plt Count, EDTA (150 - 400 K/uL) 218 Hypochromic-Microcytic 1+ Anisocytosis (manual) 1+ PUBS MCHC (31 - 37 g/dL) 33 Assessment and Plan Problem List 1. Pneumonia Status Acute Onset Date Unknown Plan - Pts pneumonia is improving very slightly - given her smoking history patient most definitely has some degree of reactive airway disease - will add steroids to patients regimen - will c/w azithro and ceftriaxone for the time being - will c/w duonebs administration 2. Hyperglycemia Status Acute Onset Date Unknown Plan - pt has evidence of hyperglycemia due to being pre-diabetic and having elevated glucocorticoids - will continue to monitor for improvement - will certified genetic counselor patient in terms of changing her diet and behavior
[2016-08-04 18:14] VITALS: BP 149/87
[2016-08-04 23:39] VITALS: BP 123/69
[2016-08-05 02:12] VITALS: BP 142/70
[2016-08-05 07:12] VITALS: BP 134/54
[2016-08-05 08:24] VITALS: BP 130/65
[2016-08-05 15:11] VITALS: BP 145/78
--- NOTE | 2016-08-05 18:08 | Progress Note ---
Subjective General Pt seen and examined. Patient has persistent wheezes bilaterally. Patient otherwise has no other complaints at the given time. Constitutional Denies: Fever, Chills, Sweats, Weakness, Malaise, Other. Eyes Denies: Pain, Vision Change, Conjunctival Inflammation, Eyelid Inflammation, Redness, Other. ENT Denies: Ear Pain, Ear Discharge, Nose Pain, Nasal Discharge, Nasal Congestion, Mouth Pain, Mouth Swelling, Throat Pain, Throat Swelling, Other. Respiratory Cough, SOB w/exertion, Wheezing. Denies: Dry, Hemoptysis, Pleuritic Pain, Sputum, Other. Cardiovascular Denies: Chest Pain, Palpitations, Orthopnea, PND, Edema, Light-headedness, Other. Gastrointestinal Denies: Nausea, Vomiting, Abdominal Pain, Diarrhea, Constipation, Melena, Hematochezia, Other. Genitourinary Denies: Dysuria, Frequency, Incontinence, Hematuria, Retention, Other. Musculoskeletal Denies: Neck Pain, Shoulder Pain, Arm Pain, Back Pain, Hand Pain, Leg Pain, Foot Pain, Other. Skin Denies: Rash, Lesions, Jaundice, Bruising, Other. Neurological Denies: Weakness, Numbness, Incoordination, Change in speech, Confusion, Seizures, Other. Physical Exam Vital Signs / I&Os Vital Signs Date Time Temp Pulse Resp B/P Pulse O2 O2 Flow FiO2 Ox Delivery Rate 08/05 1639 Nasal 2.0 Cannula 08/05 1522 2.0 08/05 1511 98.1 64 20 145/78 94 Nasal 4.0 Cannula 08/05 1137 88 Nasal 2.0 Cannula 08/05 1017 2.0 08/05 0826 Nasal 2.0 Cannula 08/05 0824 98.8 59 20 130/65 90 Nasal 2.0 Cannula 04/05 0212 97.9 61 18 142/70 92 Nasal 2.0 Cannula /05 0151 2.0 /05 0030 Nasal 2.0 Cannula / 2339 98.2 52 18 123/69 92 Nasal 2.0 Cannula / 1913 2.0 04/ 1814 98.8 67 20 149/87 92 Nasal 2.0 Cannula I&O 08/04 0800 04/04 1600 04/05 0000 Intake Total 800 345 480 Output Total 875 1000 150 Balance -75 -655 330 General Appearance Alert, Oriented X3, No acute distress HEENT Atraumatic, EOMI, Moist mucous membranes Lungs - bilateral wheezes, ronchi present bilaterally. - afternoon exam shows improvement however persistent wheezes Neck No JVD, No thyromegaly, No lymphadenopathy Cardiovascular Regular rate and rhythm, No murmurs, gallops, rubs Abdomen Soft, No tenderness, No masses Extremities No edema, Normal pulses, No tenderness, Strength = upper ext's, Strength = lower ext's Skin No Breakdown Neurological Normal gait, Normal speech, Cranial nerves intact, Strength 5/5 x4 ext's, No lateralizing signs Psych/Mental Status Mood normal LAB Results Laboratory Tests 08/05 529 Chemistry Plasma Sodium (136 - 145 mmol/L) 142 Plasma Potassium (3.5 - 5.1 mmol/L) 3.5 Plasma Chloride (98 - 107 mmol/L) 105 CO2 (Enzymatic) (21 - 32 mmol/L) 24 BUN (7 - 18 mg/dL) 12 Creatinine (0.6 - 1.3 mg/dL) 0.8 Est GFR ( Amer) (mL/min) >60 Est GFR (Non-Af Amer) (mL/min) >60 Glucose (70 - 110 mg/dL) 213 Plasma Calcium (8.5 - 10.1 mg/dL) 8.8 Total Bilirubin (0.0 - 1.0 mg/dL) 0.3 AST (15 - 37 U/L) 38 ALT (12 - 78 U/L) 68 Alkaline Phosphatase (46 - 116 U/L) 128 Total Protein (6.4 - 8.2 g/dL) 6.5 Albumin (3.3 - 5.0 g/dL) 2.5 Hematology WBC (4.5 - 11.5 K/uL) 7.8 RBC (4.00 - 5.20 M/uL) 3.21 Hgb (12.0 - 16.0 gm/dL) 9.0 Hct (36.0 - 46.0 %) 27.2 MCV (80 - 100 fL) 85 MCH (26 - 34 pg) 28 RDW (11.6 - 14.8 %) 16.6 Neut % (Auto) (50 - 75 %) 88.4 Lymph % (Auto) (25 - 40 %) 9.7 Cocke % (Auto) (3 - 14 %) 1.9 Eos % (Auto) (0 - 4 %) 0 Baso % (Auto) (0 - 2 %) 0 Plt Count, EDTA (150 - 400 K/uL) 265 PUBS MCHC (31 - 37 g/dL) 33 Assessment and Plan Problem List 1. Pneumonia Status Acute Onset Date Unknown Plan - pt has evidence of pneumonia with concometant reactive airway disease - pt on day 4 of antibiotics - will continue with steroids, will reduce dose to 60 mg q8 - encourage to use incentive spirometery 2. Hyperglycemia Status Acute Onset Date Unknown Plan - pt has evidence of pre-diabetes - pt educated ab out what to avoid in terms of carbohydrates - will c.w monitoring of sugars
[2016-08-05 19:35] VITALS: BP 163/94
[2016-08-05 22:55] VITALS: BP 165/93
[2016-08-06 00:19] VITALS: BP 136/70
[2016-08-06 03:10] VITALS: BP 139/78
[2016-08-06 07:19] VITALS: BP 156/87
[2016-08-06 10:38] VITALS: BP 142/76
[2016-08-06 14:28] VITALS: BP 136/83
[2016-08-06] MEDS ORDERED: AZITHROMYCIN500 MG PO (15:30)
--- NOTE | 2016-08-06 15:30 | Provider's Discharge Care Plan ---
Problem, Goal, Plan Problem List 1. Pneumonia Instructions: Stop smoking, -take antibiotics as prescribed -use incentive spirometer at least 10 times a day - finish steroid regimen 2. Hyperglycemia Instructions: - avoid carbohydrates and processed sugar - adhere to the diet that the counter tender provided for you
--- NOTE | 2016-08-06 15:30 | Provider's Discharge Care Plan ---
Problem, Goal, Plan Problem List 1. Pneumonia Instructions: Stop smoking, -take antibiotics as prescribed -use incentive spirometer at least 10 times a day - finish steroid regimen 2. Hyperglycemia Instructions: - avoid carbohydrates and processed sugar - adhere to the diet that the industrial illuminating engineer provided for you
[2016-08-06] MEDS ORDERED: DELTASONE20 MG PO ×2 (15:31→15:44)
[2016-08-06] MEDS ORDERED: ALBUTEROL HFA60 DOSE IN (15:32)
--- NOTE | 2016-08-06 16:41 | Discharge Summary ---
Discharge Summary Report Admit Date 08/02/16 Discharge Date 08/06/16 Admission Diagnosis pneumonia Discharge Diagnosis pneumonia, reactive airway disease, and pre-diabetes Brief History please refer to H&P Hospital Course Patient was admitted for pneumonia and was subsequently treated with antibiotics. Patient was doing poorly and was not improving as steadily as we had hoped. Patient was seen to have persistent wheezing despite being on medication. Patient was placed on steroids and improved much more significantly. Patient additionally was seen to have persistently elevated blood sugars. Patients blood work pointed that the patient has evidence of pre-diabetes. Patient was counciled on what to eat in terms of carbohydrates. Patient was eventually weaned off of her nasal cannula. Patient at this point is stable for discharge. She will be discharged home, she will finish her course of antibiotics. and then undergo a steroid taper. Patient will take her inhaler as prescribed. She will follow up with her pmd. HEENT Atraumatic, PERRLA, Mucous membran moist/pink Lungs Clear to auscultation, Normal air movement Cardiovascular Normal S1, Normal S2, No murmurs, Gallops Abdomen Soft, No tenderness, No masses Neurological Normal speech, Sensation intact, Cranial nerves 3-12 NL Discharge Instructions/Meds - finish course of antibiotics and steroids - follow up with your pmd - adhere to diabetic diet
--- NOTE | 2016-08-10 12:45 | ED DISCHARGE INSTRUCTIONS ---
Patient: ALETHEA TREVIZO General Instructions [facility] VisitID: [id number] [address] [place] [address] 46y, F Registration Date/Time: 08/01/2016 Bacterial pneumonia with hypoxemia. Vital signs recorded and reviewed; empiric antibiotics given in the ED. (Electronically signed by Madelin Greene MD 08/10/2016 12:44)
--- NOTE | 2016-08-10 12:45 | ED MED RECONCILIATION SUMMARY ---
Patient: ALETHEA TREVIZO Medication Reconciliation Report [facility] VisitID: [id number] [address] [place] [address] 46y, F Registration Date/Time: 08/01/2016 Weight: 87.5 kg Height/Length: 65 in. BMI: 32.1 ALLERGIES: No Known Drug Allergy The patient's Home Medications are listed below: Not obtained. The source(s) of the original Home Medication information: patient The following Medications were given to the patient in the Emergency Department: Rocephin [IVPB] IVPB bolus 0, then 2 gm 120 mL/hr, administered: 08/02/2016 12:26:00 AM IV NS IV Fluids bolus 0, administered: 08/02/2016 12:22:00 AM Zithromax [IVPB] IVPB bolus 0, then 500 mg 250 mL/hr, administered: 08/02/2016 12:52:00 AM Toradol [IVP] IVP 15 mg, administered: 08/02/2016 2:21:00 AM Dilaudid [IVP] IVP 1 mg, administered: 08/02/2016 2:23:00 AM The following Medications were prescribed to the patient: None.
--- NOTE | 2016-08-10 12:45 | ED DISCHARGE INSTRUCTIONS ---
Patient: ALETHEA TREVIZO General Instructions [facility] VisitID: [id number] [address] [place] [address] 46y, F Registration Date/Time: 08/01/2016 Bacterial pneumonia with hypoxemia. Vital signs recorded and reviewed; empiric antibiotics given in the ED. (Electronically signed by Madelin Greene MD 08/10/2016 12:44)
--- NOTE | 2016-08-10 12:45 | ED MAR SUMMARY ---
..... Medication Administration Record [facility] [address] [facility] [address] Patient: ALETHEA TREVIZO Visit ID: [id number] 46y, F Weight: 87.5 kg Height/Length: 65 in BMI: 32.1 ALLERGIES: No Known Drug Allergy Start 00:22 08/02/2016 Paolo Bustillo R.N., Stop 01:22 08/02/2016 Paolo Bustillo R.N. Medication Administered: IV NS (SALINE), Dose: IV Fluids over 1 hour(s), Dispensed: 1000 mL bag, Site: #1 left AC. Medication Ordered: IV NS : initial bolus 1000 mL (1000 mL/hr), then none - (NOW). Start 00:26 08/02/2016 Paolo Bustillo R.N., Stop 00:50 08/02/2016 Paolo Bustillo R.N. Medication Administered: ROCEPHIN [IVPB] (CEFTRIAXONE SODIUM), Dose: 2 gm IVPB over 20 minute(s), Rate: 120 mL/hr, Dispensed: 50 mL bag, Site: #1 left AC. Medication Ordered: Rocephin IV 2 gm/50mL (NOW). Start 00:52 08/02/2016 Paolo Bustillo R.N., Stop 01:55 08/02/2016 Paolo Bustillo R.N. Medication Administered: ZITHROMAX [IVPB] (AZITHROMYCIN), Dose: 500 mg IVPB over 1 hour(s), Rate: 250 mL/hr, Dispensed: 250 mL bag, Site: #1 left AC. Medication Ordered: Zithromax IV 500 mg/250 mL (NOW). Given 02:21 08/02/2016 Paolo Bustillo R.N. Medication Administered: TORADOL [IVP], Dose: 15 mg IVP over 1 minute(s), Site: #1 left AC. Medication Ordered: Toradol IV 15 mg (NOW). Given 02:23 08/02/2016 Paolo Bustillo R.N. Medication Administered: DILAUDID [IVP] (HYDROMORPHONE HCL PF), Dose: 1 mg IVP over 2 minute(s), Site: #1 left AC. Medication Ordered: Dilaudid IV 1 mg (HIGH ALERT MEDICATION, NOW).
--- NOTE | 2016-08-10 12:45 | ED MED RECONCILIATION SUMMARY ---
Patient: ALETHEA TREVIZO Medication Reconciliation Report Formerly [facility] VisitID: [id number] [address] [place] [address] 46y, F Registration Date/Time: 08/01/2016 Weight: 87.5 kg Height/Length: 65 in. BMI: 32.1 ALLERGIES: No Known Drug Allergy The patient's Home Medications are listed below: Not obtained. The source(s) of the original Home Medication information: patient The following Medications were given to the patient in the Emergency Department: Rocephin [IVPB] IVPB bolus 0, then 2 gm 120 mL/hr, administered: 08/02/2016 12:26:00 AM IV NS IV Fluids bolus 0, administered: 08/02/2016 12:22:00 AM Zithromax [IVPB] IVPB bolus 0, then 500 mg 250 mL/hr, administered: 08/02/2016 12:52:00 AM Toradol [IVP] IVP 15 mg, administered: 08/02/2016 2:21:00 AM Dilaudid [IVP] IVP 1 mg, administered: 08/02/2016 2:23:00 AM The following Medications were prescribed to the patient: None.
--- NOTE | 2016-08-10 12:45 | ED MAR SUMMARY ---
..... Medication Administration Record [facility] [address] [facility] [place] [address] Patient: ALETHEA TREVIZO Visit ID: [id number] 46y, F Weight: 87.5 kg Height/Length: 65 in BMI: 32.1 ALLERGIES: No Known Drug Allergy Start 00:22 08/02/2016 Paolo Bustillo R.N., Stop 01:22 08/02/2016 Paolo Bustillo R.N. Medication Administered: IV NS (SALINE), Dose: IV Fluids over 1 hour(s), Dispensed: 1000 mL bag, Site: #1 left AC. Medication Ordered: IV NS : initial bolus 1000 mL (1000 mL/hr), then none - (NOW). Start 00:26 08/02/2016 Paolo Bustillo R.N., Stop 00:50 08/02/2016 Paolo Bustillo R.N. Medication Administered: ROCEPHIN [IVPB] (CEFTRIAXONE SODIUM), Dose: 2 gm IVPB over 20 minute(s), Rate: 120 mL/hr, Dispensed: 50 mL bag, Site: #1 left AC. Medication Ordered: Rocephin IV 2 gm/50mL (NOW). Start 00:52 08/02/2016 Paolo Bustillo R.N., Stop 01:55 08/02/2016 Paolo Bustillo R.N. Medication Administered: ZITHROMAX [IVPB] (AZITHROMYCIN), Dose: 500 mg IVPB over 1 hour(s), Rate: 250 mL/hr, Dispensed: 250 mL bag, Site: #1 left AC. Medication Ordered: Zithromax IV 500 mg/250 mL (NOW). Given 02:21 08/02/2016 Paolo Bustillo R.N. Medication Administered: TORADOL [IVP], Dose: 15 mg IVP over 1 minute(s), Site: #1 left AC. Medication Ordered: Toradol IV 15 mg (NOW). Given 02:23 08/02/2016 Paolo Bustillo R.N. Medication Administered: DILAUDID [IVP] (HYDROMORPHONE HCL PF), Dose: 1 mg IVP over 2 minute(s), Site: #1 left AC. Medication Ordered: Dilaudid IV 1 mg (HIGH ALERT MEDICATION, NOW).
== END 2016-08-06 16:10 | disposition home or self-care (01) | DRG 139 ==
LOC: ED SRH 21:15 → TRANS SRH 08-02 01:38 → ACUTE2 SRH 08-02 03:20
PROVIDERS: ADMIT Emergency Medicine
DX: J18.9 Pneumonia, unspecified organism (principal); J45.909 Unspecified asthma, uncomplicated; R09.02 Hypoxemia; R73.03 Prediabetes; F17.200 Nicotine dependence, unspecified, uncomplicated
CPT/HCPCS: 29230; 29263; 90047; 90065; 90074; 90098; 90100; 91286; 91295; 91400; 91504; 91505; 92031; 92668; 92670; 92720; 93004; 95059; 95061